=== PATIENT | male | born 1955 | race Caucasian/White ===

== ENCOUNTER 2022-04-19 08:16 | Outpatient (CLI) | payer BC, SELFPAY ==
--- NOTE | ~2022-04-19 | XR_ITS ---
XR chest 2V 04/19/2022 08:44 Indication: Pneumonia Procedure: PA and lateral views of the chest Comparison: No prior studies for comparison. Findings: Small left pleural effusion. There is focal left lower lobe consolidation posteriorly. Hear t size normal. No edema or pneumothorax. No acute osseous abnormality. Impression: 1: Left lower lobe airspace disease, suspicious for pneumonia. 2: Small left pleural effusion. Reviewed, dictated and finalized at location L. [employer] ASS[employer] Impression: 1: Left lower lobe airspace disease, suspicious for pneumonia. 2: Small left pleural effusion.
[2022-04-19 08:45] LABS: Basophils Percent Auto 0.2 % (0.2-1.2); Eosinophils Absolute Auto 0.1 K/mm3 (0-0.3); Eosinophils Percent Auto 0.7 % (0-4.4); Hematocrit 37.8 % (42.0-52.0); Hemoglobin 12.8 g/dL (14.0-18.0); Immature Granulocyte Absolute 0.05 K/mm3 (0.00-0.031); Immature Granulocyte Percent A 0.6 % (0-0.5); Lymphocytes Absolute Auto 0.57 K/mm3 (0.9-3.2); Lymphocytes Percent Auto 6.4 % (18.3-44.2); Mean Corpuscular HGB Conc 33.9 g/dl (32-36); Mean Corpuscular Hemoglobin 29.8 pg (26-34); Mean Corpuscular Volume 88.1 fl (80-100); Mean Platelet Volume 9.5 fl (7.4-10.4); Monocytes Absolute Auto 0.8 K/mm3 (0.1-0.6); Monocytes Percent Auto 8.9 % (2.6-8.5); Neutrophils Absolute Auto 7.4 K/mm3 (1.3-6.7); Neutrophils Percent Auto 83.2 % (45.5-73.1); Platelet Count Result 172 k/mm3 (150-375); Red Blood Count 4.29 M/mm3 (4.6-6.20); Red Cell Distribution Width 12.9 % (11.5-14.5); White Blood Count 8.8 K/mm3 (4.5-10.0)
[2022-04-19 08:54] LABS: Alanine Aminotransferase 20 U/L (6-50); Albumin Level 3.8 g/dL (3.5-5.1); Alkaline Phosphatase 70 U/L (38-126); Anion Gap 6 mmol/L (8-16); Aspartate Amino Transferase 24 U/L (17-59); Bilirubin,Total 0.8 mg/dL (0.2-1.3); Blood Urea Nitrogen 17 mg/dL (9-20); Calcium 8.2 mg/dL (8.4-10.2); Carbon Dioxide 28 mmol/L (22-30); Chloride 103 mmol/L (98-107); Estimated Glomerular Filt Rate > 60; Glucose 130 mg/dL (65-110); Potassium 4.3 mmol/L (3.4-5.0); Sodium 137 mmol/L (137-145)
== END 2022-04-19 08:17 | disposition home or self-care (01) ==
PROVIDERS: PCP Family Medicine; Visit Provider Physician Assistant
DX: J18.9 Pneumonia, unspecified organism (principal)
CPT/HCPCS: 36415; 71046; 80053; 85025

== ENCOUNTER 2023-02-28 07:32 | Outpatient (CLI) | payer BC, SELFPAY ==
--- NOTE | ~2023-02-28 | US_ITS ---
aorta preventative scrn DATE: 02/28/2023 08:43 INDICATION: Controlled hypertension. Hypercholesterolemia. Past smoker. Screening for cardiovascular disease. TECHNIQUE: Real-time and color flow imaging and Doppler analysis of the abdominal aorta COMPARISON: None FINDINGS: The proximal abdominal aorta measures up to approximately 2.7 cm diameter, the mid abdomina l aorta approximately 2.1 cm diameter, the distal abdominal aorta approximately 1.6 cm diameter. The common iliac arteries measure up to approximately 1.1 cm diameter on the right and 1 cm diameter on the left. There is some atherosclerotic calcified plaque of the abdominal aorta but no significant abdominal ao rtic stenosis or occlusion. Biphasic flow is noted in the aorta. IMPRESSION: Abdominal aortic atherosclerosis without aneurysm or significant stenosis Reviewed, dictated and finalized at [facility]. Reviewed, dictated and finalized at location B. ER [employer] IMPRESSION: Abdominal aortic atherosclerosis without aneurysm or significant st enosis
== END 2023-02-28 07:33 | disposition home or self-care (01) ==
PROVIDERS: PCP Family Medicine; Visit Provider Family Medicine
DX: I71.40 Abdominal aortic aneurysm, without rupture, unspecified (principal); Z13.6 Encounter for screening for cardiovascular disorders
CPT/HCPCS: 76706